=== PATIENT | female | born 1965 | race Caucasian/White ===

== ENCOUNTER 2019-04-21 06:33 | Inpatient (IN) ==
--- NOTE | 2019-04-21 06:53 | Anesthesia Evaluation PreOp ---
Date of Encounter: 04/21/19 Time of Encounter: 06:51 - Past History Planned Operation: Hand assisted lap right nephrectomy Cardiac History: Denies any Significant Hx, HTN, Arrhythmia (on cardizem for PACs), Other (stress test from [facility] 2018 negative) Pulmonary History: Denies Any Significant HX FLIGHT/TRANSPORT NURSE History: Denies Any Significant HX, Other (anxiety) Other Medical History: Renal (right renal pelvic mass, ESRD(on PD)), GERD Anesthesia History: No Prior Anesthetic Complications, Past Anesthesia (mult. kidney surgeries, C/S) Alcohol Use: none Drug use: none Medications and Allergies BuPROPion XL (24 HR) [Wellbutrin Xl] 150 mg PO DAILY 01/22/19 [History] Diltiazem CD (24hr) [Cardizem CD] 120 mg PO DAILY 01/22/19 [History] Fluticasone Propionate Nasal [Flonase] 50 mcg NS DAILY PRN 01/22/19 [History] Melatonin 5 mg PO HS PRN 01/22/19 [History] Sodium Bicarbonate 650 mg PO BID 01/22/19 [History] Tiopronin [Thiola] 100 mg PO AD 01/22/19 [History] Allopurinol [Zyloprim 100 MG] 100 mg PO DAILY 01/23/19 [History] Citalopram Hydrobromide [Celexa] 40 mg PO DAILY 01/23/19 [History] Cyclobenzaprine [Flexeril] 10 mg PO HS 01/23/19 [History] Loratadine [Claritin] 10 mg PO DAILY PRN 01/23/19 [History] Pantoprazole Sodium [Protonix] 40 mg PO DAILY 01/23/19 [History] Topiramate [Topamax] 25 mg PO HS 01/23/19 [History] Butalbital-Acetaminophn 50-325 1 tab PO Q4H PRN 03/03/19 [History] Dialyvite 3,000 Tablet 1 tab PO DAILY 03/03/19 [History] Ferric Citrate [Auryxia] 2 tab PO TIDAC 03/03/19 [History] Gabapentin [Neurontin] 300 mg PO HS 03/03/19 [History] HYDROcodone/Acet 5/325 mg [Debary 5-325 mg] 1 tab PO Q6H PRN 5 Days #6 tablet 03/03/19 [Rx] Vitamin D 2,000 unit PO DAILY 03/03/19 [History] Allergy/AdvReac Type Severity Reaction Status Date / Time No Known Allergies Allergy Verified 02/17/19 10:48 - Meds/Allergy Pre-op Review Medications Reviewed: Yes Allergies Reviewed: Yes Beta Blockers on Current Med List: No Anesthesia Results - Labs Laboratory Tests 09/27/18 01/24/19 04/17/19 08:20 05:27 12:15 Hgb 10.6 L POC Hgb 7.8 L Plt Count 169 Sodium 135 L Potassium 3.3 L BUN 80 H Creatinine 9.78 H - Imaging Additional studies: echo 2017: Impressions: LVEF 65%. Normal left ventricular size and systolic function. Normal right ventricular size and function. No significant valvular dysfunction. No pulmonary hypertension. Left Ventricular Wall Motion: Rest Echo Findings All wall segments showed normal motion. Anesthesia Exam Weight: 76kg NPO (# of Hours): 8 - HEENT Pupil (Motor): EOMI Mallampati: III Teeth: Normal Oral Opening: Greater than 3 - FLIGHT/TRANSPORT NURSE LOC: Oriented FLIGHT/TRANSPORT NURSE Motor: Normal RUE, Normal LUE, Normal RLE, Normal LLE, Normal Face FLIGHT/TRANSPORT NURSE Sensory: Normal: RUE, LUE, RLE, LLE, Face - Cardiac Rhythm: Regular Murmur: None - Pulmonary Breath Sounds: bilateral Clear Respiratory Effort: Symmetrical Anesthesia Assess/Plan ASA Score: 3 Level of consciousness: Cooperative, Oriented, Tranquil Anesthetic Plan: General Monitoring Plan: Standard Monitors Recovery Plan: PACU (agrees to GA.)
[2019-04-21] MEDS ORDERED: Lidocaine -MPF 1% 2 ML AMPUL ONE (07:01)
[2019-04-21] MEDS ORDERED: *HR* Promethazine 25 MG/ML VIAL IVP PRN ×2 (07:03→12:43)
[2019-04-21] MEDS ORDERED: Ringers Solution, Lactated 1,000 ML IVC SCH (07:15)
--- NOTE | 2019-04-21 07:19 | History & Physical Report ---
Date of Encounter: 04/21/19 Time of Encounter: 07:18 24 Hour HP Update - Instructions Instructions: If the History and Physical is less than 30 days old and was completed prior to A.M. admission and or procedure and has NOT been updated on calendar day of procedure please complete this update prior to performing procedure. - Update Patient reports changes in Medical Condition: No Changes in examination, assessment, or condition: No Changes in Medication: No Preop tests/diagnostics Reviewed: Yes Surgery Remains Indicated: Yes Consent for Planned Operative Procedure(s) Verified: Yes - Pre-Operative Checklist Preoperative Checklist Indicated: Yes Prophylactic Antibiotic Ordered: Yes Is VTE Prophylaxis Indicated?: Yes
[2019-04-21] MEDS ORDERED: levoFLOXacin 500 MG/100 ML 500 MG/100 ML BAG IVPB ONE (07:22)
[2019-04-21] MEDS ORDERED: Ondansetron 4 MG/2 ML VIAL ONE (07:34)
[2019-04-21] MEDS ORDERED: *HR* Rocuronium Bromide 50 MG/5 ML VIAL ONE ×2 (07:34→09:22)
[2019-04-21] MEDS ORDERED: Dexamethasone 4 MG/ML VIAL ONE (07:34)
[2019-04-21] MEDS ORDERED: Lidocaine -MPF 4% 5 ML AMPUL ONE (07:34)
[2019-04-21] MEDS ORDERED: Neostigmine Methylsulfate 3 MG/3 ML SYRINGE ONE (07:34)
[2019-04-21] MEDS ORDERED: *HR* Midazolam HCl 2 MG/2 ML VIAL ONE ×2 (07:35→12:14)
[2019-04-21] MEDS ORDERED: *HR* FentaNYL (PF) 100 MCG/2 ML VIAL ONE ×2 (07:35→12:14)
[2019-04-21] MEDS ORDERED: *HR* Propofol 200 MG/20 ML VIAL IVP ONE (07:35)
[2019-04-21] MEDS ORDERED: Lidocaine -MPF 2% 2 ML VIAL ONE (07:36)
[2019-04-21] MEDS ORDERED: Bupivacaine/EPI 1:200k 0.25%PF 30 ML VIAL ONE (08:17)
[2019-04-21] MEDS ORDERED: EPHEDrine 50 MG/ML VIAL ONE (08:58)
--- NOTE | 2019-04-21 10:38 | Operative Note ---
Date of procedure: 04/21/19 Pre-op diagnosis: right renal pelvis mass Post-op diagnosis: same Procedure: Hand-assisted laparoscopic right nephroureterectomy, transurethral incision of right ureteral orifice, interaortocaval lymph node dissection Anesthesia: JESSICA Surgeon: Hany Varma Was there an registered nurse first assistant present: Yes Eligibility Clerk: Lidia Sterling Estimated blood loss (cc): 50 Specimen: Right kidney and ureter, interaortocaval nodes Condition: stable Disposition: PACU Procedure in Detail: Patient was prepped and draped in normal sterile fashion. After placed in the lithotomy position. Timeout procedure performed. I then inserted the bipolar resectoscope into the patient's bladder. I proceeded to use the Flores knife and then incise around the right ureteral orifice down to fat. At this point, hemostasis was obtained. I then placed a 22-Hungarian catheter into the patient's bladder. Patient was then reprepped and draped and right side up lateral position. Timeout procedure was then performed again. I then made a incision in the right lower quadrant of the abdomen to obtain access to the peritoneum. Hand port was in place. 2 standard 12 mm trochars were placed in standard fashion. With the aid of my registered nurse first assistant I then used the camera and Harmonic scalpel to reflect the colon medially. I was able to identify the markedly dilated ureter on the right side. I carried this dissection cranially towards the renal hilum. The kidney was remarkably stuck to the lateral wall secondary to prior open surgery. I then was able to identify the hilum and used the echelon stapler to staple across this. I then was able to free up the lateral aspects of the kidney. I then turned my attention to the ureter and carried this dissection inferiorly towards the bladder where I was able to free the ureter up bluntly from the patient's bladder. Prior to this I did place 2 terrance across the ureter. At this point I then freed remaining portion of the kidney from the lateral and cranial aspects. The specimen was then removed from the patient's abdomen. At this point I then placed a camera and dissector back to the patient's abdomen. I could visualize some enlarged fatty tissue in the interaortocaval yunior region. I then was able to free some of this tissue up using the Harmonic scalpel to free the inferior and cranial edges. This tissue was sent for separate pathological analysis. Hemostasis was obtained. I placed FloSeal into the resection bed of the kidney and a Surgicel on the vena cava. The hand port and trochars were then removed. Fascia was then closed using running 0 looped PDS. Skin was closed using 4 Monocryl. Dermabond was placed over top. Patient taken to PACU in stable condition.
[2019-04-21] MEDS: *HR* HYDROmorphone (PF) 1 MG/ML SYRINGE IVP PRN ×2 (11:03→11:11)
--- NOTE | 2019-04-21 11:27 | Anesthesia Evaluation Post Op ---
Date of Encounter: 04/21/19 Time of Encounter: 11:26 - Vital Signs Vital Signs: Selected Entries 04/21/19 11:10 04/21/19 11:20 Temperature 97.5 F L Pulse Rate 88 Respiratory Rate 12 Blood Pressure 103/61 O2 Sat by Pulse Oximetry 100 - Lungs Lungs: Clear Ascult./Percussion - Airway Airway: Non-obstructed - Cardiovascular Regular Rate - Mental Status Mental Status: Alert & Oriented, Answers Appropriately - Pain Pain Scale: 3 Pain Scale used: Numeric (1 - 10) - Nausea Vomiting Nausea Vomiting: Not Present - Hydration Hydration: Ice chips, Choudhury catheter - Discharge PostOp Status: Transfer Patient to floor
[2019-04-21] MEDS ORDERED: Melatonin 3 MG TABLET PO PRN (11:49)
[2019-04-21] MEDS ORDERED: *HR* Belladonna Alkaloids/Opium 30 MG RECTAL SUPPOSITORY RC PRN (11:49)
[2019-04-21] MEDS ORDERED: Naloxone 0.4 MG/ML INJ IVP PRN (11:49)
[2019-04-21] MEDS: *HR* HYDROcodone/Acet 5/325 mg TABLET PO PRN ×2 (12:57→21:34)
--- NOTE | 2019-04-21 14:23 | Nephrology Consult Note ---
Date of Encounter: 04/21/19 Time of Encounter: 14:16 Assessment and Plan (1) ESRD (end stage renal disease) on dialysis Current Visit: Yes Status: Acute Patient has been on PD since September of this year. Will transition to HD via Tunneled cath until healed from Nephrectomy. IR consulted to place tunneled line tomorrow, NPO at midnight. Avoid nephrotoxins and renal dose. Strict I/O Daily weights. (2) Renal mass Current Visit: No Status: Chronic Per urology. S/P right nephrectomy. History of Present Illness - Reason for Consult Consult date: 04/21/19 end stage renal disease Requesting physician: Hany Varma - Chief Complaint s/p neph - History of Present Illness Ms. Lee is a 53 year old patient who is inpatient today after a right nephrectomy with Dr. Varma. PMH: ESRD on PD has been on PD since September of this year. Patient had right nephrectomy due to mass. Patient will be transitioned to HD via tunneled cath while healing from surgery. IR has been consulted to place tunneled cath tomorrow. Will plan on HD tomorrow. Denies nausea, vomiting, diarrhea. Denies chest pain or shortness of breath. Denies pain. She lives at home. Denies etoh, tobacco use, or illicit drug use. Past Med Surg Social Fam HX - Past Medical History Medical history: kidney stones, renal disease, other Additional medical history: Palpitations, Renal Failure Stage IV, neck & shoulder pain, anxiety/depression, fatigue, MEEK, seborrheic dermatitis, PAC, gout, pertoneal dialysis, Ureteral Stone, Tachycardia Psychiatric history: anxiety, depression - Past Surgical History Surgical History: Additional surgical history: kidney stone removals, Right Perc Neph, multiple kidney sx, colonoscopy, C/S X2, Port for Dialysis - Social History Smoking Status: Never smoker Smokeless Tobacco Status: No Alcohol use: none Drug use: none Medications and Allergies BuPROPion XL (24 HR) [Wellbutrin Xl] 150 mg PO DAILY 01/22/19 [History] Diltiazem CD (24hr) [Cardizem CD] 120 mg PO DAILY 01/22/19 [History] Fluticasone Propionate Nasal [Flonase] 1 spray NS DAILY 01/22/19 [History] Melatonin 5 mg PO HS PRN 01/22/19 [History] Sodium Bicarbonate 650 mg PO BID 01/22/19 [History] Tiopronin [Thiola] 100 mg PO AD 01/22/19 [History] Allopurinol [Zyloprim 100 MG] 100 mg PO DAILY 01/23/19 [History] Citalopram Hydrobromide [Celexa] 40 mg PO DAILY 01/23/19 [History] Pantoprazole Sodium [Protonix] 40 mg PO DAILY 01/23/19 [History] Topiramate [Topamax] 25 mg PO HS 01/23/19 [History] Ferric Citrate [Auryxia] 210 - 420 mg PO AD 03/03/19 [History] Gabapentin [Neurontin] 300 mg PO HS 03/03/19 [History] Butalb/Acetaminophen/Caffeine [Rbytgp-Pzleiyla-Fnzf 50-325-40] 1 tab PO Q4H PRN 04/21/19 [History] Cetirizine HCl 10 mg PO DAILY 04/21/19 [History] Folic Acid/Vit B Complex and C [Dialyvite Tablet] 1 tab PO DAILY 04/21/19 [History] Allergy/AdvReac Type Severity Reaction Status Date / Time No Known Allergies Allergy Verified 02/17/19 10:48 Review of Systems All Systems review (narrative): The remainder of the systems are negative. Constitutional: no chills, no fatigue, no fever(s) Cardiovascular: no chest pain, no dyspnea Gastrointestinal: no diarrhea, no nausea, no vomiting Genitourinary Female: no hematuria Exam - Vital Signs Vital signs: Initial Vital Signs Temp Pulse Resp BP Pulse Ox 98.3 F 93 18 138/72 99 04/21/19 07:09 04/21/19 07:09 04/21/19 07:09 04/21/19 07:09 04/21/19 07:09 Vital Signs - Last 8 Hours Temp Pulse Resp BP Pulse Ox 04/21/19 12:15 100 04/21/19 11:40 99.6 F 88 12 112/64 100 04/21/19 11:30 86 12 104/61 100 04/21/19 11:20 88 12 103/61 100 04/21/19 11:10 97.5 F L 83 12 113/60 100 04/21/19 11:00 89 12 113/65 98 04/21/19 10:50 88 12 114/75 100 04/21/19 10:40 97.8 F 88 12 106/50 95 04/21/19 07:09 98.3 F 93 18 138/72 99 Intake and Output 04/20/19 04/21/19 04/21/19 23:59 07:59 15:59 Output Total 50 / 50 Balance -50 / -50 Output: Estimated Blood Loss 50 / 50 Other: Weight 76.204 kg Patient Weight 04/21/19 23:59 Weight 76.204 kg - General Appearance General appearance: well-developed, well-nourished EENT: ATNC, hearing intact, vision intact Neck: supple Respiratory: clear Cardiology: no edema, normal S1, normal S2 - Dialysis Access Additional Comments: PD cath site c/d/i Gastrointestinal: normoactive bowel sounds, no tenderness, no guarding Integumentary: no rash, warm and dry Neurologic: alert and oriented x3 Musculoskeletal: no deformities, no erythema Psychiatric: mood/affect appropriate, cooperative Consult Discharge Plan - Plan Referrals: Minda Gonzalez DISPLAY ARTIST [Primary Care Provider] -
[2019-04-21] MEDS: Gabapentin 300 MG CAPSULE PO SCH (21:34)
[2019-04-21] MEDS: Topiramate 25 MG TABLET PO SCH (21:34)
[2019-04-21 22:29] LABS: Hepatitis B Surface Antibody 6.32 mIU/mL
[2019-04-21 22:39] LABS: Hepatitis B Surface Antigen Nonreactive (Nonreactive)
[2019-04-22] MEDS: *HR* OxyCODONE Immed Rel 5 MG TABLET PO PRN ×2 (00:48→18:37)
[2019-04-22 03:23] LABS: Basophils % 0.1 %; Eosinophils % 0.1 %; Hematocrit 30.2 % (35.3-44.9); Hemoglobin 9.4 g/dL (11.5-15.4); Immature Granulocytes % 0.5 % (0-4); Lymphocytes # 1.4 K/mcL (0.6-4.6); Lymphocytes % 17.4 %; Mean Corpuscular HGB Conc 31.1 g/dL (31.6-35.5); Mean Corpuscular Hemoglobin 32.9 pg (28.0-33.3); Mean Corpuscular Volume 105.6 fL (83.0-100.0); Mean Platelet Volume 9.7 fL (9.4-12.4); Monocytes # 0.6 K/mcL (0.0-1.3); Monocytes % 7.9 %; Platelet Count 169 K/mcL (140-400); Red Blood Count 2.86 M/mcL (3.82-4.97); White Blood Count 8.1 K/mcL (4.3-11.1)
[2019-04-22 03:43] LABS: Calcium 8.9 mg/dL (8.6-10.3); Potassium 4.6 mEq/L (3.5-5.1)
[2019-04-22] MEDS: *HR* HYDROcodone/Acet 5/325 mg TABLET PO PRN ×3 (05:19→23:12)
--- NOTE | 2019-04-22 06:45 | Urology Progress Note ---
Date of Encounter: 04/22/19 Time of Encounter: 06:44 - Assessment and Plan (1) Renal mass Current Visit: No Status: Chronic Assessment and plan: Status post nephroureterectomy. Ambulate today. Continue with incentive spirometer. Continue clears until flatus. Patient is to get a PermCath today so that she can initiate hemodialysis. Still for anticipation of discharge tomorrow. Progress Note Narrative: Postoperative day 1 from hand-assisted laparoscopic right nephroureterectomy. Patient was up and ambulating last night. Tolerating clears. Labs reviewed and stable. Objective Initial Vital Signs Temp Pulse Resp BP Pulse Ox 98.3 F 93 18 138/72 99 04/21/19 07:04/21/19 07:09 04/21/19 07:04/21/19 07:04/21/19 07:09 - General physical appearance Present: well developed, well nourished - Abdomen Present: soft. Absent: tender (Incision clean dry and intact) - Labs 04/22/19 03:13 04/22/19 03:13 Diabetes panel 04/22/19 Range/Units 03:13 Sodium 136 (136-145) mEq/L Potassium 4.6 (3.5-5.1) mEq/L Chloride 99 (98-107) mEq/L Carbon Dioxide 23 (23-29) mEq/L BUN 89 H (6-20) mg/dL Creatinine 10.95 H (0.60-1.20) mg/dL Glucose 144 H (70-105) mg/dL Calcium 8.9 (8.6-10.3) mg/dL Calcium panel 04/22/19 Range/Units 03:13 Calcium 8.9 (8.6-10.3) mg/dL Pituitary panel 04/22/19 Range/Units 03:13 Sodium 136 (136-145) mEq/L Potassium 4.6 (3.5-5.1) mEq/L Chloride 99 (98-107) mEq/L Carbon Dioxide 23 (23-29) mEq/L BUN 89 H (6-20) mg/dL Creatinine 10.95 H (0.60-1.20) mg/dL Glucose 144 H (70-105) mg/dL Calcium 8.9 (8.6-10.3) mg/dL Adrenal panel 09/10/19 Range/Units 03:13 Sodium 136 (136-145) mEq/L Potassium 4.6 (3.5-5.1) mEq/L Chloride 99 (98-107) mEq/L Carbon Dioxide 23 (23-29) mEq/L BUN 89 H (6-20) mg/dL Creatinine 10.95 H (0.60-1.20) mg/dL Glucose 144 H (70-105) mg/dL Calcium 8.9 (8.6-10.3) mg/dL Consult Discharge Plan - Plan Referrals: Minda Gonzalez, RUBBER PRODUCTION MACHINE OPERATOR [Primary Care Provider] -
[2019-04-22] MEDS ORDERED: 0.9 % Sodium Chloride 250 ML IVC PRN (07:16)
[2019-04-22] MEDS ORDERED: 0.9 % Sodium Chloride 1,000 ML PRIME SCH (07:30)
[2019-04-22 08:06] LABS: INR 1.3; Prothrombin Time 14.3 Seconds (9.4-12.1)
[2019-04-22] MEDS: Diltiazem CD (24hr) 120 MG CAPSULE PO SCH (09:03)
[2019-04-22] MEDS: Fluticasone Propionate Nasal 50 MCG/SPRAY BOTTLE NS SCH (09:03)
[2019-04-22] MEDS: Loratadine 10 MG TABLET PO SCH (09:03)
[2019-04-22] MEDS: BuPROPion XL (24 HR) 150 MG TABLET PO SCH (09:03)
[2019-04-22] MEDS ORDERED: Heparin 1,000 UNITS/500 mL 500 ML ONE (10:16)
[2019-04-22] MEDS ORDERED: 0.9 % Sodium Chloride 500 ML ONE (10:46)
[2019-04-22] MEDS ORDERED: *HR* FentaNYL (PF) 100 MCG/2 ML VIAL IVP ONE (10:54)
[2019-04-22] MEDS ORDERED: *HR* Midazolam HCl 2 MG/2 ML VIAL IVP ONE (10:54)
[2019-04-22] MEDS ORDERED: ceFAZolin 2,000 MG in Water for inj. (sterile) 20 ML IVP ONE (10:54)
[2019-04-22] MEDS ORDERED: *HR* FentaNYL (PF) 100 MCG/2 ML VIAL ONE (10:55)
[2019-04-22] MEDS ORDERED: *HR* Midazolam HCl 2 MG/2 ML VIAL ONE (10:55)
[2019-04-22] MEDS ORDERED: *HR* Heparin 5,000 UNIT/ML VIAL ONE (11:09)
[2019-04-22] MEDS ORDERED: CeFAZolin Premix DUPLEX 2,000 MG/50 ML BAG IVPB ONE (12:00)
--- NOTE | 2019-04-22 13:37 | Nephrology Progress Note ---
Date of Encounter: 04/22/19 Time of Encounter: 13:37 - Assessment and Plan (1) ESRD (end stage renal disease) on dialysis Current Visit: Yes Status: Acute Patient has been on PD since September of this year. Will transition to HD via Tunneled cath until healed from Nephrectomy. Tunneled cath placed today. 2 1/2 hours HD ordered for this afternoon. Per Kojo, anticipate d/c home tomorrow. Confirmed chair time for 5:45 am on (04/23/19) at [facility]. Avoid nephrotoxins and renal dose. Strict I/O Daily weights. (2) Renal mass Current Visit: No Status: Chronic Per urology. S/P right nephrectomy. (3) HTN (hypertension) Current Visit: Yes Status: Acute Continue current medication regimen. Qualifiers: Qualified Code(s): I10 - Essential (primary) hypertension Subjective Principal diagnosis: s/p nephrectomy, HD Interval history: Pt seen and examined. Overall feeling well. Pt would like more than a clear liquid diet. Per Kojo's note, may advance when + for flatus, RN informed. Denies chest pain or shortness of breath. Denies nausea, vomiting, diarrhea. Objective - Vital Signs Vital signs: Vital Signs Temp Pulse Resp BP Pulse Ox 04/22/19 12:40 98.1 F 97 17 126/67 98 04/22/19 11:11 92 15 119/66 100 04/22/19 11:07 91 26 127/72 100 04/22/19 10:50 90 19 135/73 100 04/22/19 10:35 98.4 F 89 15 100/64 04/22/19 06:53 98.4 F 89 15 100/64 97 04/22/19 05:20 98.4 F 89 14 119/67 98 04/21/19 23:17 98.1 F 95 14 115/64 98 04/21/19 20:58 98.6 F 99 14 102/65 97 Intake and Output 04/21/19 04/22/19 04/22/19 23:59 07:59 15:59 Intake Total 360 / 360 0 / 0 Output Total 0 / 50 250 / 250 0 / 250 Balance 360 / 310 -250 / -250 0 / -250 Intake: Oral 360 / 360 0 / 0 Output: Urine 0 / 0 Catheter 0 / 0 250 / 250 0 / 250 Other: Meal Dinner Weight 77.2 kg Blood Glucose* 98 128 Patient Weight 04/22/19 23:59 Weight 77.2 kg - General Appearance General appearance: Present: well-developed, well-nourished EENT: Present: ATNC, hearing intact, vision intact Neck: Present: supple Respiratory: Present: clear Cardiology: Present: no edema, normal S1, normal S2 Dialysis Vascular Access: Venous Catheter (DRSG C/D/I) Additional Comments: PD cath site c/d/i Gastrointestinal: Present: normoactive bowel sounds, no tenderness, no guarding Integumentary: Present: no rash, warm and dry Neurologic: Present: alert and oriented x3 Musculoskeletal: Present: no deformities, no erythema Psychiatric: Present: mood/affect appropriate, cooperative - Lab 04/22/19 03:13 04/22/19 03:13 Most recent lab results 04/22/19 03:13 Calcium 8.9 Consult Discharge Plan - Plan Referrals: Minda Gonzalez, EXTRACTION MACHINE OPERATOR [Primary Care Provider] -
[2019-04-22] MEDS ORDERED: *HR* Heparin 10,000 UNIT/10 ML VIAL IV PRN (16:41)
[2019-04-22] MEDS: Topiramate 25 MG TABLET PO SCH (21:25)
[2019-04-22] MEDS: Gabapentin 300 MG CAPSULE PO SCH (21:25)
[2019-04-23 05:34] LABS: Basophils % 0.1 %; Eosinophils % 0.1 %; Hematocrit 30.1 % (35.3-44.9); Hemoglobin 9.3 g/dL (11.5-15.4); Immature Granulocytes % 0.7 % (0-4); Lymphocytes # 1.5 K/mcL (0.6-4.6); Mean Corpuscular HGB Conc 30.9 g/dL (31.6-35.5); Mean Corpuscular Hemoglobin 32.2 pg (28.0-33.3); Mean Corpuscular Volume 104.2 fL (83.0-100.0); Mean Platelet Volume 9.5 fL (9.4-12.4); Monocytes # 0.6 K/mcL (0.0-1.3); Monocytes % 9.2 %; Neutrophils # 4.6 K/mcL (1.6-8.9); Platelet Count 166 K/mcL (140-400); Red Blood Count 2.89 M/mcL (3.82-4.97); Red Cell Distribution Width 15.2 % (11.5-14.5); Segmented Neutrophils % 67.9 %; White Blood Count 6.8 K/mcL (4.3-11.1)
[2019-04-23 05:55] LABS: Calcium 8.5 mg/dL (8.6-10.3); Potassium 4.5 mEq/L (3.5-5.1)
--- NOTE | 2019-04-23 08:40 | Discharge Summary ---
<Lidia Sterling N - Last Filed: 04/23/19 08:38> Orders not resulted at time of discharge: Pending orders 04/21/19 10:03 Surgical Pathology [PTH] Routine Date of Encounter: 04/23/19 Time of Encounter: 07:50 - Discharge Diagnosis (1) Renal mass Priority: Primary Status: Chronic - Hospital Course Hospital course: Ms. Lee is a 53 year old female who presents with a history of a right renal pelvis mass. On 04/21/2019, patient was taken to the operating room where she underwent hand-assisted laparoscopic right nephroureterectomy, transurethral incision of right ureteral orifice, interaortocaval lymph node dissection. There were no surgical complications, and the patient tolerated the procedure well. Postoperative course was relatively unremarkable, and she was dismissed in satisfactory condition. Postoperative expectations, restrictions, activity and follow-up were discussed with patient, and patient verbalized understanding. Time spent discussing smoking cessation with patient: 3 to 10 minutes - Time Spent with Patient Total time spent providing and/or coordinating discharge services: Less than 30 minutes Procedures and tests throughout hospitalization: Hand-assisted laparoscopic right nephroureterectomy, transurethral incision of right ureteral orifice, interaortocaval lymph node dissection Labs on day of discharge: Labs from last 24 hours 04/23/19 04/23/19 04/22/19 05:14 05:14 12:37 WBC 6.8 RBC 2.89 L Hgb 9.3 L Hct 30.1 L MCV 104.2 H MCH 32.2 MCHC 30.9 L RDW 15.2 H Plt Count 166 MPV 9.5 Immature Gran % 0.7 Seg Neutrophils % 67.9 Lymphocytes % 22.0 Monocytes % 9.2 Eosinophils % 0.1 Basophils % 0.1 Neutrophils # 4.6 Lymphocytes # 1.5 Monocytes # 0.6 Eosinophils # 0.0 Basophils # 0.0 Sodium 138 Potassium 4.5 Chloride 97 L Carbon Dioxide 29 BUN 45 H Creatinine 7.51 H Est GFR ( Amer) 7 L Est GFR (Non-Af Amer) 6 L BUN/Creatinine Ratio 6 Glucose 108 H POC Glucose 128 H Calculated Osmolality 298 Calcium 8.5 L - Impressions ITS Impressions Guidance Ultrasound 04/22/19 00:00 IMPRESSION: Successful ultrasound and fluoroscopy guided tunneled catheter placement . D/ / Akhil Treviño MD / Akhil Treviño MD Interpreting Provider: Akhil Treviño MD Insertion Tunneled Catheter 04/22/19 00:00 IMPRESSION: Successful ultrasound and fluoroscopy guided tunneled catheter placement . D/ / Akhil Treviño MD / Akhil Treviño MD Interpreting Provider: Akhil Treviño MD - Discharge Medications Prescriptions: New HYDROcodone/Acet 5/325 mg [[place] 5-325 mg] 1 tab PO Q6H PRN 4 Days #15 tab PRN Reason: Pain Ondansetron HCl [Zofran] 4 mg PO Q6H PRN #15 tablet PRN Reason: Nausea Continued Melatonin 5 mg PO HS PRN PRN Reason: Sleep Fluticasone Propionate Nasal [Flonase] 1 spray NS DAILY Diltiazem CD (24hr) [Cardizem CD] 120 mg PO DAILY Sodium Bicarbonate 650 mg PO BID Tiopronin [Thiola] 100 mg PO AD BuPROPion XL (24 HR) [Wellbutrin Xl] 150 mg PO DAILY Allopurinol [Zyloprim 100 MG] 100 mg PO DAILY Citalopram Hydrobromide [Celexa] 40 mg PO DAILY Pantoprazole Sodium [Protonix] 40 mg PO DAILY Topiramate [Topamax] 25 mg PO HS Ferric Citrate [Auryxia] 210 - 420 mg PO AD Gabapentin [Neurontin] 300 mg PO HS Folic Acid/Vit B Complex and C [Dialyvite Tablet] 1 tab PO DAILY Cetirizine HCl 10 mg PO DAILY Butalb/Acetaminophen/Caffeine [Caprcn-Ksdkybme-Adyr 50-325-40] 1 tab PO Q4H PRN PRN Reason: Migraine Headache Home Medications: BuPROPion XL (24 HR) [Wellbutrin Xl] 150 mg PO DAILY 01/22/19 [History] Diltiazem CD (24hr) [Cardizem CD] 120 mg PO DAILY 01/22/19 [History] Fluticasone Propionate Nasal [Flonase] 1 spray NS DAILY 01/22/19 [History] Melatonin 5 mg PO HS PRN 01/22/19 [History] Sodium Bicarbonate 650 mg PO BID 01/22/19 [History] Tiopronin [Thiola] 100 mg PO AD 01/22/19 [History] Allopurinol [Zyloprim 100 MG] 100 mg PO DAILY 01/23/19 [History] Citalopram Hydrobromide [Celexa] 40 mg PO DAILY 01/23/19 [History] Pantoprazole Sodium [Protonix] 40 mg PO DAILY 01/23/19 [History] Topiramate [Topamax] 25 mg PO HS 01/23/19 [History] Ferric Citrate [Auryxia] 210 - 420 mg PO AD 03/03/19 [History] Gabapentin [Neurontin] 300 mg PO HS 03/03/19 [History] Butalb/Acetaminophen/Caffeine [Jkjura-Kybnglpg-Tbzp 50-325-40] 1 tab PO Q4H PRN 04/21/19 [History] Cetirizine HCl 10 mg PO DAILY 04/21/19 [History] Folic Acid/Vit B Complex and C [Dialyvite Tablet] 1 tab PO DAILY 04/21/19 [History] HYDROcodone/Acet 5/325 mg [[place]inne 5-325 mg] 1 tab PO Q6H PRN 4 Days #15 tab 04/23/19 [Rx] Ondansetron HCl [Zofran] 4 mg PO Q6H PRN #15 tablet 04/23/19 [Rx] Allergies/Adverse Reactions: Allergy/AdvReac Type Severity Reaction Status Date / Time No Known Allergies Allergy Verified 02/17/19 10:48 Date of admission: 04/21/19 11:47 Primary care physician: Minda Gonzalez CNP Consults: 04/21/19 11:49 Consult to Nephrology [CONS] Routine Consulting Provider: Kidney Kerry/KATELYN/RONALDO/LILIANA Reason for Consult: dialysis need Call Completed: Yes 04/21/19 12:34 Consult to Nutrition [CONS] Routine Comment: Consulting Provider: NUTRITION Reason for Dietary Consult: MST Score 04/21/19 13:09 Consult to Interventional Radiology [CONS] Routine Consulting Provider: Radiology Interventional Cols Reason for Consult: Please place tunneled line tomororw. Patient will be NPO. Call Completed: No 04/22/19 07:30 Consult to Dialysis [CONS] ONCE Discharging clinician: Lidia Sterling Anticipated date of discharge: 04/23/19 Exam Initial Vital Signs Temp Pulse Resp BP Pulse Ox 98.3 F 93 18 138/72 99 04/21/19 07:09 04/21/19 07:09 04/21/19 07:09 04/21/19 07:09 04/21/19 07:09 - General physical appearance Present: well developed, no distress, no pain - Eyes Present: PERRL, normal ocular movement - ENT Present: normal nares, no hearing loss, no congestion - Neck Present: no masses, trachea midline, no lymphadenopathy - Respiratory Present: normal respiratory effort - Cardiovascular Cardiovascular exam IM: RRR - Abdomen Abdomen: Present: soft, non tender, surgical scars (primary incisions clean, dry, intact ), distended - Genitourinary Present: other (transparent pink lemonade urine ) - Integumentary Present: no rash, no abnormal pigmentation - Neurologic Present: normal coordination - Musculoskeletal Present: other (normal posture ) - Patient Status Disposition: Home, Self-Care Condition: Good Functional capacity at discharge: independent ambulation Overall status at discharge: patient is progressing back to baseline - Discharge Instructions Instructions: Sepsis (DC) Follow Up With: Hany Varma MD [Partnered Physician] - 04/28/19 9:50 am Minda Gonzalez CNP [Primary Care Provider] - Additional Instructions: Call if fever greater than 101 degrees. Call if incision sites are red, warm, or begin to drain excessively. Okay to shower. No tub baths, swimming, or hot tubs. No lifting greater than 20 pounds or heavy activity. Okay to drive as long as you are no longer taking narcotic pain medicine. - Diet and Activity Activity: increase activity as tolerated Diet: advance to your usual diet <Hany Varma - Last Filed: 04/23/19 13:38> Orders not resulted at time of discharge: Pending orders 04/21/19 10:03 Surgical Pathology [PTH] Routine Date of Encounter: 04/23/19 - Discharge Diagnosis (1) Renal mass Status: Chronic - Hospital Course Hospital course: Ms. Lee is a 53 year old female was seen and examined day of discharge. Patient was ready to go home. She is up and ambulating and tolerating regular diet. Positive flatus. - Time Spent with Patient Total time spent providing and/or coordinating discharge services: Labs on day of discharge: Labs from last 24 hours 04/23/19 04/23/19 05:14 05:14 WBC 6.8 RBC 2.89 L Hgb 9.3 L Hct 30.1 L MCV 104.2 H MCH 32.2 MCHC 30.9 L RDW 15.2 H Plt Count 166 MPV 9.5 Immature Gran % 0.7 Seg Neutrophils % 67.9 Lymphocytes % 22.0 Monocytes % 9.2 Eosinophils % 0.1 Basophils % 0.1 Neutrophils # 4.6 Lymphocytes # 1.5 Monocytes # 0.6 Eosinophils # 0.0 Basophils # 0.0 Sodium 138 Potassium 4.5 Chloride 97 L Carbon Dioxide 29 BUN 45 H Creatinine 7.51 H Est GFR ( Amer) 7 L Est GFR (Non-Af Amer) 6 L BUN/Creatinine Ratio 6 Glucose 108 H Calculated Osmolality 298 Calcium 8.5 L - Impressions ITS Impressions Guidance Ultrasound 04/22/19 00:00 IMPRESSION: Successful ultrasound and fluoroscopy guided tunneled catheter placement . D/ / Akhil Treviño MD / Akhil Treviño MD Interpreting Provider: Akhil Treviño MD Insertion Tunneled Catheter 04/22/19 00:00 IMPRESSION: Successful ultrasound and fluoroscopy guided tunneled catheter placement . D/ / Akhil Treviño MD / Akhil Treviño MD Interpreting Provider: Akhil Treviño MD Date of admission: 04/21/19 11:47 Primary care physician: Minda Gonzalez CNP Consults: 04/21/19 11:49 Consult to Nephrology [CONS] Routine Consulting Provider: Kidney Kerry/KATELYN/RONALDO/LILIANA Reason for Consult: dialysis need Call Completed: Yes 04/21/19 12:34 Consult to Nutrition [CONS] Routine Comment: Consulting Provider: NUTRITION Reason for Dietary Consult: MST Score 04/21/19 13:09 Consult to Interventional Radiology [CONS] Routine Consulting Provider: Radiology Interventional Cols Reason for Consult: Please place tunneled line tomororw. Patient will be NPO. Call Completed: No 04/22/19 07:30 Consult to Dialysis [CONS] ONCE Exam Initial Vital Signs Temp Pulse Resp BP Pulse Ox 98.3 F 93 18 138/72 99 04/21/19 07:09 04/21/19 07:09 04/21/19 07:09 04/21/19 07:09 04/21/19 07:09
[2019-04-23] MEDS: Loratadine 10 MG TABLET PO SCH (08:42)
[2019-04-23] MEDS: Diltiazem CD (24hr) 120 MG CAPSULE PO SCH (08:42)
[2019-04-23] MEDS: Fluticasone Propionate Nasal 50 MCG/SPRAY BOTTLE NS SCH (08:42)
[2019-04-23] MEDS: BuPROPion XL (24 HR) 150 MG TABLET PO SCH (08:42)
[2019-04-23] MEDS ORDERED: FLU Vac QV 19-20 (6Month+)/PF 0.5 ML SYRINGE IM ONE (11:20)
[2019-04-23] MEDS: *HR* HYDROcodone/Acet 5/325 mg TABLET PO PRN (11:31)
--- NOTE | 2019-04-23 11:42 | Nephrology Progress Note ---
Date of Encounter: 04/23/19 Time of Encounter: 11:40 - Assessment and Plan (1) ESRD (end stage renal disease) on dialysis Current Visit: Yes Status: Acute Patient has been on PD since September of this year. Will transition to HD via Tunneled cath until healed from Nephrectomy. Tunneled cath placed 04/22/19. HD completed yesterday, without complication. Going home today. Confirmed chair time for 5:45 am on (04/23/19) at [facility]. Avoid nephrotoxins and renal dose. Strict I/O Daily weights. (2) Renal mass Current Visit: No Status: Chronic Per urology. S/P right nephrectomy. (3) HTN (hypertension) Current Visit: Yes Status: Acute Continue current medication regimen. Qualifiers: Qualified Code(s): I10 - Essential (primary) hypertension Subjective Principal diagnosis: s/p nephrectomy, HD Interval history: Pt seen and examined. Overall feeling well. Pt denies nausea, vomiting, diarrhea. Denies chest pain or shortness of breath. She is ready to go home, she will have outpatient HD tomorrow at [facility]. Objective - Vital Signs Vital signs: Vital Signs Temp Pulse Resp BP Pulse Ox 04/23/19 08:49 96 04/23/19 06:53 99.0 F 76 14 119/71 96 04/23/19 04:31 98.8 F 82 15 109/67 95 04/22/19 23:47 99.5 F 91 15 108/62 96 04/22/19 20:17 99.3 F 101 15 112/67 96 04/22/19 17:30 97.9 F 15 116/69 04/22/19 17:15 109/67 04/22/19 17:00 107/65 04/22/19 16:45 100/61 04/22/19 16:30 103/67 04/22/19 16:15 104/64 04/22/19 16:00 97/59 04/22/19 15:45 101/56 04/22/19 15:30 120/73 04/22/19 15:15 122/72 04/22/19 15:00 142/76 04/22/19 14:45 99.4 F 15 147/70 04/22/19 12:40 98.1 F 97 17 126/67 98 Intake and Output 09/10/19 09/11/19 09/11/19 23:59 07:59 15:59 Intake Total 240 / 240 Output Total 1700 / 1950 150 / 150 Balance -1700 / -1450 -150 / 90 240 / 90 Intake: Oral 240 / 240 Output: Urine 0 / 0 Total Dialysis (HD) Output 1500 / 1500 Catheter 200 / 450 150 / 150 Other: Meal Breakfast Percent of Meal Consumed 85% Weight 77.6 kg Hemodialysis Net Fluid Removed 1000 (mL) Patient Weight 04/23/19 23:59 Weight 77.6 kg - General Appearance General appearance: Present: well-developed, well-nourished EENT: Present: ATNC, hearing intact, vision intact Neck: Present: supple Respiratory: Present: clear Cardiology: Present: no edema, normal S1, normal S2 Dialysis Vascular Access: Venous Catheter (DRSG C/D/I) Additional Comments: PD cath site c/d/i Gastrointestinal: Present: normoactive bowel sounds, no tenderness, no guarding Integumentary: Present: no rash, warm and dry Neurologic: Present: alert and oriented x3 Musculoskeletal: Present: no deformities, no erythema Psychiatric: Present: mood/affect appropriate, cooperative - Lab 04/23/19 05:14 04/23/19 05:14 Most recent lab results 04/23/19 05:14 Calcium 8.5 L Consult Discharge Plan - Plan Instructions: Sepsis (DC) Additional Instructions: Call if fever greater than 101 degrees. Call if incision sites are red, warm, or begin to drain excessively. Okay to shower. No tub baths, swimming, or hot tubs. No lifting greater than 20 pounds or heavy activity. Okay to drive as long as you are no longer taking narcotic pain medicine. Referrals: Hany Varma MD [Partnered Physician] - 04/28/19 9:50 am Minda Gonzalez CNP [Primary Care Provider] - Prescriptions: HYDROcodone/Acet 5/325 mg [[place] 5-325 mg] 1 tab PO Q6H PRN 4 Days #15 tab PRN Reason: Pain
[2019-04-23 11:53] VITALS: BP 111/66
== END 2019-04-23 12:05 | disposition home or self-care (01) | DRG 656 ==
LOC: SAMDAY 06:33 → 3ANU 11:47
PROVIDERS: ADMIT Urology; ATTEND Urology
PROC: IRPERMA (2019-04-22 10:00)

== ENCOUNTER 2019-09-13 22:26 | Observation (INO) ==
[2019-09-14 00:57] LABS: Basophils % 0.6 %; Eosinophils % 0.2 %; Hematocrit 39.7 % (35.3-44.9); Hemoglobin 12.6 g/dL (11.5-15.4); Immature Granulocytes % 0.4 % (0-4); Lymphocytes # 1.4 K/mcL (0.6-4.6); Lymphocytes % 25.1 %; Mean Corpuscular HGB Conc 31.7 g/dL (31.6-35.5); Mean Corpuscular Hemoglobin 31.7 pg (28.0-33.3); Mean Corpuscular Volume 99.7 fL (83.0-100.0); Mean Platelet Volume 9.9 fL (9.4-12.4); Monocytes # 0.3 K/mcL (0.0-1.3); Monocytes % 5.9 %; Neutrophils # 3.7 K/mcL (1.6-8.9); Platelet Count 222 K/mcL (140-400); Red Blood Count 3.98 M/mcL (3.82-4.97); Red Cell Distribution Width 16.6 % (11.5-14.5); Segmented Neutrophils % 67.8 %; White Blood Count 5.5 K/mcL (4.3-11.1)
[2019-09-14 01:37] LABS: Calcium 9.7 mg/dL (8.6-10.3); Potassium 6.7 mEq/L (3.5-5.1)
[2019-09-14 01:42] LABS: Bilirubin,Urine Negative (Negative); Blood,Urine Large (Negative); Clarity,Urine Clear (Clear); Color,Urine Yellow (Yellow); Glucose,Urine (UA) 100 mg/dL (Normal); Ketones,Urine Negative (Negative); Leukocyte Esterase,Urine Small (Negative); Nitrite,Urine Negative (Negative); Protein,Urine 100 mg/dL (Neg-Trace); Specific Gravity,Urine 1.015 (1.010-1.025); Urobilinogen,Urine Normal (Normal)
[2019-09-14 01:45] LABS: Bacteria,Urine Few per hpf (None-Few); Hyaline Casts,Urine None Seen per lpf (None-Few); RBC,Urine 30-50 per hpf (0-3); Squamous Epithelial Cell,Urine Many per lpf (None-Few); WBC,Urine 15-30 per hpf (0-3)
[2019-09-14] MEDS ORDERED: Insulin Human Regular 10 UNIT in 0.9 % Sodium Chloride 10 ML IV ONE (02:23)
[2019-09-14] MEDS ORDERED: Calcium Gluconate 1gm/50mL 1 GM/50 ML BAG IVPB STA (02:26)
[2019-09-14] MEDS: *HR* Dextrose 50 % in Water (Syg) 50 ML SYRINGE IVP ONE ×2 (03:09→05:45)
[2019-09-14 03:34] LABS: Calcium 9.5 mg/dL (8.6-10.3); Potassium 6.9 mEq/L (3.5-5.1)
[2019-09-14] MEDS ORDERED: Albuterol 2.5 MG/3 ML NEBULIZER IH ONE (04:09)
[2019-09-14] MEDS ORDERED: *HR* Dextrose 50 % in Water (Syg) 50 ML SYRINGE ONE (04:57)
[2019-09-14] MEDS ORDERED: *HR* Dextrose 50 % in Water (Vial) 50 ML VIAL IVP ONE (05:11)
[2019-09-14] MEDS ORDERED: Naloxone 0.4 MG/ML INJ IVP PRN (05:43)
[2019-09-14] MEDS: SODIUM ZIRCONIUM CYCLOSILICATE 5 GM POWD.PACK PO SCH (10:32)
[2019-09-14] MEDS: *HR* Labetalol 20 MG/4 ML SYRINGE IVP PRN ×2 (10:32→17:59)
[2019-09-14 11:34] LABS: Calcium 9.1 mg/dL (8.6-10.3); Potassium 5.8 mEq/L (3.5-5.1)
[2019-09-14] MEDS ORDERED: Acetaminophen 325 MG TABLET PO PRN (11:52)
[2019-09-14] MEDS ORDERED: Furosemide 20 MG TABLET PO SCH (13:36)
[2019-09-14] MEDS: *HR* Heparin 5,000 UNIT/ML VIAL SQ SCH ×2 (14:08→19:18)
[2019-09-14] MEDS: DilTIAZem CD (24hr) 120 MG CAP.ER.24H PO SCH (14:08)
[2019-09-14] MEDS: Acetaminophen/Butalbital/CaffeineTABLET PO PRN ×2 (14:57→21:27)
[2019-09-14] MEDS: carvediloL 6.25 MG TABLET PO SCH (16:19)
[2019-09-14] MEDS ORDERED: Melatonin 3 MG TABLET PO PRN (16:49)
[2019-09-14] MEDS ORDERED: Perit. Dialysis with Dex 2.5 % 12,000 ML PERITONEAL ONE (19:00)
[2019-09-14] MEDS ORDERED: Topiramate 25 MG TABLET PO SCH (21:00)
[2019-09-14] MEDS ORDERED: Gabapentin 300 MG CAPSULE PO SCH (21:00)
[2019-09-14] MEDS ORDERED: *HR* Promethazine 25 MG/ML VIAL IVP ONE (21:33)
[2019-09-15 02:25] LABS: Hepatitis B Surface Antibody < 3.10 mIU/mL
[2019-09-15 02:36] LABS: Hepatitis B Surface Antigen Nonreactive (Nonreactive)
[2019-09-15] MEDS: *HR* Heparin 5,000 UNIT/ML VIAL SQ SCH (05:15)
[2019-09-15 05:21] LABS: Basophils % 0.3 %; Eosinophils % 0.5 %; Hemoglobin 11.2 g/dL (11.5-15.4); Immature Granulocytes % 0.5 % (0-4); Lymphocytes # 0.9 K/mcL (0.6-4.6); Lymphocytes % 15.4 %; Mean Corpuscular Hemoglobin 31.4 pg (28.0-33.3); Mean Platelet Volume 10.4 fL (9.4-12.4); Monocytes # 0.5 K/mcL (0.0-1.3); Monocytes % 9.1 %; Neutrophils # 4.3 K/mcL (1.6-8.9); Platelet Count 185 K/mcL (140-400); Red Blood Count 3.57 M/mcL (3.82-4.97); Red Cell Distribution Width 16.4 % (11.5-14.5); Segmented Neutrophils % 74.2 %; White Blood Count 5.8 K/mcL (4.3-11.1)
[2019-09-15 05:37] LABS: Calcium 9.1 mg/dL (8.6-10.3); Potassium 4.9 mEq/L (3.5-5.1)
[2019-09-15] MEDS ORDERED: Fluticasone Propionate Nasal 50 MCG/SPRAY BOTTLE NS SCH (09:00)
[2019-09-15] MEDS ORDERED: BuPROPion XL (24 HR) 150 MG TABLET PO SCH (09:00)
[2019-09-15] MEDS ORDERED: Loratadine 10 MG TABLET PO SCH (09:00)
[2019-09-15] MEDS ORDERED: Gentamicin Oint 15 GM TUBE TP SCH (09:00)
[2019-09-15] MEDS ORDERED: CETIRIZINE HCL 10 MG PO SCH (09:00)
[2019-09-15] MEDS ORDERED: Gabapentin 300 MG CAPSULE PO SCH (09:00)
[2019-09-15] MEDS ORDERED: Furosemide 40 MG TABLET PO SCH (09:00)
[2019-09-15] MEDS: carvediloL 6.25 MG TABLET PO SCH (09:02)
[2019-09-15] MEDS: SODIUM ZIRCONIUM CYCLOSILICATE 5 GM POWD.PACK PO SCH (09:03)
[2019-09-15] MEDS: DilTIAZem CD (24hr) 120 MG CAP.ER.24H PO SCH (09:03)
[2019-09-15 09:50] VITALS: BP 175/92
== END 2019-09-15 11:31 | disposition home or self-care (01) ==
LOC: EMEROOARM 22:26 → 2ANU 22:26 → SUATTDRO 09-14 05:44 → 2ANU 09-14 06:27
PROVIDERS: ADMIT Internal Medicine; ATTEND Internal Medicine

== ENCOUNTER 2020-01-07 18:42 | Observation (INO) ==
[2020-01-07] MEDS ORDERED: *HR* LORazepam 2 MG/ML VIAL IVP ONE (18:59)
[2020-01-07 19:23] LABS: Bilirubin,Urine Negative (Negative); Blood,Urine Large (Negative); Clarity,Urine Clear (Clear); Color,Urine Yellow (Yellow); Glucose,Urine (UA) 100 mg/dL (Normal); Ketones,Urine Negative (Negative); Leukocyte Esterase,Urine Moderate (Negative); Nitrite,Urine Negative (Negative); PH,Urine 7.5 pH Units (5.0-8.0); Protein,Urine >=300 mg/dL (Neg-Trace); Specific Gravity,Urine 1.009 (1.010-1.025); Urobilinogen,Urine Normal (Normal)
[2020-01-07 19:26] LABS: Bacteria,Urine None Seen per hpf (None-Few); Hyaline Casts,Urine None Seen per lpf (None-Few); Squamous Epithelial Cell,Urine Many per lpf (None-Few); WBC,Urine 30-50 per hpf (0-3)
[2020-01-07 19:36] LABS: Amphetamine Screen,Urine Negative ng/mL (Cutoff=1000); Barbiturate Screen,Urine Positive ng/mL (Cutoff=200); Benzodiazepines Screen,Urine Negative ng/mL (Cutoff=200); Cannabinoid Screen,Urine Negative ng/mL (Cutoff = 50); Cocaine Screen,Urine Negative ng/mL (Cutoff= 300); Opiate Screen,Urine Negative ng/mL (Cutoff=300); Phencyclidine Screen,Urine Negative ng/mL (Cutoff=25)
[2020-01-07 19:38] LABS: Basophils % 0.3 %; Eosinophils # 0.1 K/mcL (0.0-0.6); Eosinophils % 1.6 %; Hematocrit 31.1 % (35.3-44.9); Hemoglobin 9.3 g/dL (11.5-15.4); Immature Granulocytes % 0.5 % (0-4); Lymphocytes % 15.5 %; Mean Corpuscular HGB Conc 29.9 g/dL (31.6-35.5); Mean Corpuscular Hemoglobin 29.8 pg (28.0-33.3); Mean Corpuscular Volume 99.7 fL (83.0-100.0); Mean Platelet Volume 10.3 fL (9.4-12.4); Monocytes # 0.5 K/mcL (0.0-1.3); Monocytes % 7.1 %; Neutrophils # 4.7 K/mcL (1.6-8.9); Platelet Count 172 K/mcL (140-400); Red Blood Count 3.12 M/mcL (3.82-4.97); Red Cell Distribution Width 16.6 % (11.5-14.5); White Blood Count 6.3 K/mcL (4.3-11.1)
[2020-01-07 19:39] LABS: RBC,Urine 30-50 per hpf (0-3)
[2020-01-07 20:23] LABS: Blood Urea Nitrogen 88 mg/dL (6-20); Carbon Dioxide 17 mEq/L (23-29); Chloride 99 mEq/L (98-107); Sodium 137 mEq/L (136-145)
[2020-01-07 20:24] LABS: Alanine Aminotransferase 25 Units/L (7-52); Albumin 2.9 g/dL (3.5-5.7); Alkaline Phosphatase 88 Units/L (34-104); Aspartate Amino Transferase 23 Units/L (13-39); BUN/Creatinine Ratio 7 (6-26); Bilirubin,Direct 0.1 mg/dL (0.0-0.2); Bilirubin,Indirect 0.2 mg/dL (0.0-1.0); Bilirubin,Total 0.3 mg/dL (0.3-1.0); Calcium 7.8 mg/dL (8.6-10.3); Ethanol < 10 mg/dL (Less than 10); Globulin 2.8 g/dL (2.4-3.5); Glucose 92 mg/dL (70-105); Osmolality,Calculated 311 (280-300); Total Protein 5.7 g/dL (6.4-8.9); eGFR For African Americans 4 (> 60); eGFR For Non-African Americans 3 (> 60)
[2020-01-07 20:42] LABS: Troponin I 0.05 ng/mL (< 0.04)
[2020-01-07] MEDS ORDERED: Acetaminophen 325 MG TABLET PO ONE (23:23)
[2020-01-08] MEDS ORDERED: Naloxone 0.4 MG/ML INJ IVP PRN (00:43)
[2020-01-08] MEDS ORDERED: Melatonin 3 MG TABLET PO PRN (00:50)
[2020-01-08] MEDS ORDERED: Calcium Gluconate 1gm/50mL 1 GM/50 ML BAG IVPB ONE ×2 (01:01→03:29)
[2020-01-08] MEDS ORDERED: levETIRAcetam 1,000 MG in 0.9 % Sodium Chloride 100 ML IVPB ONE (01:05)
[2020-01-08 01:56] LABS: Basophils % 0.3 %; Eosinophils % 0.3 %; Hematocrit 30.6 % (35.3-44.9); Hemoglobin 9.3 g/dL (11.5-15.4); Immature Granulocytes % 0.4 % (0-4); Lymphocytes # 0.9 K/mcL (0.6-4.6); Lymphocytes % 13.5 %; Mean Corpuscular HGB Conc 30.4 g/dL (31.6-35.5); Mean Corpuscular Hemoglobin 30.7 pg (28.0-33.3); Mean Platelet Volume 10.7 fL (9.4-12.4); Monocytes # 0.5 K/mcL (0.0-1.3); Monocytes % 7.3 %; Neutrophils # 5.3 K/mcL (1.6-8.9); Platelet Count 175 K/mcL (140-400); Red Blood Count 3.03 M/mcL (3.82-4.97); Red Cell Distribution Width 16.7 % (11.5-14.5); Segmented Neutrophils % 78.2 %; White Blood Count 6.8 K/mcL (4.3-11.1)
[2020-01-08 02:03] LABS: INR 1.1
[2020-01-08 02:20] LABS: Albumin 2.9 g/dL (3.5-5.7); Bilirubin,Total 0.4 mg/dL (0.3-1.0); Calcium 7.9 mg/dL (8.6-10.3); Chol/HDL Ratio 2.7 (0-4.9); Magnesium 1.8 mg/dL (1.6-2.6); Phosphorous 12.6 mg/dL (2.7-4.5); Potassium 6.2 mEq/L (3.5-5.1); Total Protein 5.9 g/dL (6.4-8.9)
[2020-01-08] MEDS: Topiramate 25 MG TABLET PO SCH (02:59)
[2020-01-08] MEDS ORDERED: Aspirin Enteric Coated 325 MG Tablet PO ONE (03:28)
[2020-01-08] MEDS ORDERED: Furosemide 40 MG/4 ML VIAL IVP SCH (03:29)
[2020-01-08] MEDS ORDERED: *HR* Dextrose 50 % in Water (Vial) 50 ML VIAL IVP ONE (03:30)
[2020-01-08] MEDS ORDERED: Insulin Human Regular 10 UNIT in 0.9 % Sodium Chloride 10 ML IV ONE (03:30)
[2020-01-08] MEDS ORDERED: *HR* Dextrose 50 % in Water (Syg) 50 ML SYRINGE IVP ONE (04:00)
[2020-01-08] MEDS: *HR* Heparin 5,000 UNIT/ML VIAL SQ SCH ×2 (04:22→17:38)
[2020-01-08 08:31] LABS: Hepatitis B Surface Antibody 6.78 mIU/mL
[2020-01-08 08:42] LABS: Hepatitis B Surface Antigen Nonreactive (Nonreactive)
[2020-01-08] MEDS: Multivit/Ca/Min/Fe/FA 1 TAB TABLET PO SCH (08:58)
[2020-01-08] MEDS: carvediloL 6.25 MG TABLET PO SCH ×2 (08:58→17:39)
[2020-01-08] MEDS: Loratadine 10 MG TABLET PO SCH (08:58)
[2020-01-08] MEDS: calcitrioL 0.25 MCG CAPSULE PO SCH (08:58)
[2020-01-08] MEDS: DilTIAZem CD (24hr) 240 MG CAP.ER.24H PO SCH (08:58)
[2020-01-08] MEDS: allopurinoL 100 MG TABLET PO SCH (08:59)
[2020-01-08] MEDS ORDERED: 0.9 % Sodium Chloride 250 ML IVC PRN (10:40)
[2020-01-08] MEDS ORDERED: 0.9 % Sodium Chloride 1,000 ML PRIME SCH (10:45)
[2020-01-08] MEDS ORDERED: Heparin 1,000 UNITS/500 mL 500 ML ONE (12:22)
[2020-01-08] MEDS ORDERED: *HR* LORazepam 2 MG/ML VIAL IVP PRN (13:16)
[2020-01-08] MEDS ORDERED: *HR* FentaNYL (PF) 100 MCG/2 ML VIAL IVP ONE (14:41)
[2020-01-08] MEDS ORDERED: *HR* Midazolam HCl 2 MG/2 ML VIAL IVP ONE (14:42)
[2020-01-08] MEDS ORDERED: CeFAZolin 2,000 MG/50 ML BAG IVPB ONE (14:48)
[2020-01-08] MEDS ORDERED: 0.9 % Sodium Chloride 500 ML ONE (14:55)
[2020-01-08] MEDS ORDERED: *HR* Heparin 5,000 UNIT/ML VIAL ONE ×2 (15:03→17:32)
[2020-01-08] MEDS: Fluticasone Propionate Nasal 50 MCG/SPRAY BOTTLE NS SCH (16:02)
[2020-01-08] MEDS: Sucroferric Oxyhydroxide [Velphoro] 500 MG PO SCH ×2 (16:02→16:44)
[2020-01-08] MEDS ORDERED: carvediloL 6.25 MG TABLET ONE (17:32)
[2020-01-08] MEDS ORDERED: Acetaminophen/Butalbital/CaffeineTABLET ONE (17:32)
[2020-01-08] MEDS: Acetaminophen/Butalbital/CaffeineTABLET PO PRN (17:39)
[2020-01-08] MEDS ORDERED: *HR* Heparin 10,000 UNIT/10 ML VIAL IV PRN (19:23)
[2020-01-08] MEDS ORDERED: *HR* Heparin 10,000 UNIT/10 ML VIAL ONE (19:25)
[2020-01-08] MEDS ORDERED: Gabapentin 300 MG CAPSULE PO SCH (21:00)
[2020-01-09] MEDS: Acetaminophen/Butalbital/CaffeineTABLET PO PRN ×3 (00:06→15:25)
[2020-01-09] MEDS: Topiramate 25 MG TABLET PO SCH (00:06)
[2020-01-09 01:03] LABS: Hematocrit 27.5 % (35.3-44.9); Hemoglobin 8.3 g/dL (11.5-15.4); Mean Corpuscular HGB Conc 30.2 g/dL (31.6-35.5); Mean Corpuscular Volume 99.3 fL (83.0-100.0); Mean Platelet Volume 10.9 fL (9.4-12.4); Platelet Count 148 K/mcL (140-400); Red Blood Count 2.77 M/mcL (3.82-4.97); Red Cell Distribution Width 16.6 % (11.5-14.5); White Blood Count 5.7 K/mcL (4.3-11.1)
[2020-01-09 01:17] LABS: Calcium 8.3 mg/dL (8.6-10.3); Phosphorous 7.4 mg/dL (2.7-4.5); Potassium 4.4 mEq/L (3.5-5.1)
[2020-01-09] MEDS: *HR* Heparin 5,000 UNIT/ML VIAL SQ SCH (05:47)
[2020-01-09] MEDS ORDERED: 0.9 % Sodium Chloride 250 ML IVC PRN (07:01)
[2020-01-09] MEDS ORDERED: hydrALAZINE 25 MG TABLET PO SCH (08:00)
[2020-01-09] MEDS: Sucroferric Oxyhydroxide [Velphoro] 500 MG PO SCH ×2 (08:10→11:52)
[2020-01-09] MEDS: carvediloL 6.25 MG TABLET PO SCH (08:11)
[2020-01-09] MEDS: DilTIAZem CD (24hr) 240 MG CAP.ER.24H PO SCH (08:11)
[2020-01-09] MEDS: Loratadine 10 MG TABLET PO SCH (08:11)
[2020-01-09] MEDS: allopurinoL 100 MG TABLET PO SCH (08:11)
[2020-01-09] MEDS: Multivit/Ca/Min/Fe/FA 1 TAB TABLET PO SCH (08:11)
[2020-01-09] MEDS: calcitrioL 0.25 MCG CAPSULE PO SCH (08:11)
[2020-01-09] MEDS: Fluticasone Propionate Nasal 50 MCG/SPRAY BOTTLE NS SCH (08:12)
[2020-01-09] MEDS ORDERED: *HR* Heparin 10,000 UNIT/10 ML VIAL IV PRN (10:43)
[2020-01-09 15:10] VITALS: BP 157/81
== END 2020-01-09 15:36 | disposition home or self-care (01) ==
LOC: 3BNU 18:42 → EMEROOARM 18:42 → SUATTDRO 22:20 → 3BNU 23:01 → 2ANU 01-08 16:02
PROVIDERS: ADMIT Internal Medicine; ATTEND Internal Medicine
PROC: IRPERMA (2020-01-08 14:40)